=== PATIENT | female | born 1960 ===

== ENCOUNTER 2017-11-24 09:46 | Outpatient (CLI) | payer BC ==
--- NOTE | 2017-11-25 09:35 | Mammography Report ---
BILATERAL DIGITAL SCREENING MAMMOGRAM with CAD: 11/24/17 09:46:00 CLINICAL: Routine screening. COMPARISON:None available. Her last mammogram was over fourteen years ago in [place]. FINDINGS: The breasts are heterogeneously dense, which may obscure small masses. No mass, architectural distortion or suspicious calcifications. IMPRESSION: No mammographic evidence of malignancy. BI-RADS CATEGORY: 1 - - Negative RECOMMENDATION: Routine mammographic screening in one year. COMMENT: Patient follow-up letters are generated by our [employer] application.
== END 2017-11-24 09:47 | disposition home or self-care (01) ==
LOC: SPVWC 09:46
DX: Z12.31 Encounter for screening mammogram for malignant neoplasm of breast (principal)
CPT/HCPCS: 77067